=== PATIENT | female | born 1955 | race Caucasian/White ===

== ENCOUNTER 2018-05-19 17:58 | Emergency (ER) | payer OTHER ==
[~2018-05-19] VITALS: Ht 165.1 cm; Wt 70.0 kg
[2018-05-19] MEDS ORDERED: PRAV10TA39 PO (18:19)
[2018-05-19] MEDS ORDERED: METF-960 PO (18:19)
[2018-05-19] MEDS ORDERED: LISI-660 PO (18:19)
[2018-05-19] MEDS ORDERED: SITA25 PO (18:19)
[2018-05-19 18:44] LABS: APPEARANCE,URINE CLOUDY (CLEAR); BILIRUBIN,URINE NEGATIVE (NEGATIVE); GLUCOSE, URINE (UA) NEGATIVE (NEGATIVE); KETONES,URINE NEGATIVE (NEGATIVE); LEUKOCYTE ESTERASE ,URINE LARGE (NEGATIVE); NITRATE,URINE NEGATIVE (NEGATIVE); OCCULT BLOOD,URINE SMALL (NEGATIVE); PROTEIN,URINE POS 1+ (NEGATIVE); UROBILINOGEN,URINE 0.2 mg/dL (<=1.0)
[2018-05-19 19:29] LABS: BACTERIA,URINE Many /HPF (None Seen); RBC,URINE 0-2 /HPF (0-2); WBC,URINE >100 /HPF (0-5)
[2018-05-19 19:30] LABS: SQUAMOUS EPITHELIAL CELL,UR Few /LPF (None Seen)
[2018-05-19] MEDS ORDERED: CefTRIAXone SODIUM 1 GM/VIAL IM ONE (19:30)
[2018-05-19] MEDS ORDERED: KETOROLAC TROMETHAMINE 60 MG/2 ML VIAL IM ONE (19:30)
[2018-05-19] MEDS ORDERED: LIDOCAINE/PF 1% 2 ML VIAL IM ONE (19:30)
[2018-05-19 19:31] LABS: MUCUS,URINE Few LPF (None Seen)
[2018-05-19 19:54] VITALS: BP 133/85
== END 2018-05-19 20:50 | disposition home or self-care (01) ==
LOC: EMS 17:59
DX: N39.0 Urinary tract infection, site not specified (principal); E11.9 Type 2 diabetes mellitus without complications; I10 Essential (primary) hypertension; Z79.84 Long term (current) use of oral hypoglycemic drugs; Z79.899 Other long term (current) drug therapy
CPT/HCPCS: 81001; 87077; 87086; 87186; 96372; 99283; J0696; J1885; J3490